=== PATIENT | female | born 1985 | race Caucasian/White ===

== ENCOUNTER 2024-06-21 14:22 | Emergency (ER) | payer BC, SELFPAY ==
[2024-06-21 14:24] VITALS: BP 161/86
--- NOTE | 2024-06-21 14:51 | ED.GENMED ---
History of Present Illness
General
Chief Complaint: Back Pain
Time Seen by Provider: 06/21/24 14:35
History of Present Illness
History of Present Illness:
Patient is a 39-year-old woman who is otherwise healthy presenting to the emergency department lower back pain. Patient states that for the past week she has been having slow progression of lower back pain. She states that last night it was the
worst it has been. She went to her hair appointment today at 12 while she was sitting in the chair she notes that the pain was worsening. She came in here for further evaluation. She states that she has had this before and had extensive testing
done to evaluate for kidney stones cancer and had a bladder scan with urology as well which was all normal. She does state that she was vacuuming prior to the onset of this pain about a week ago. Her last period was 2 weeks. No dysuria urinary
frequency urgency or foul smell in her urine. No vaginal discharge. No nausea vomiting. No abdominal pain. No numbness tingling. No weakness. The pain does not radiate down her legs. no saddle anesthesia urinary incontinence or retention. No
fever. She states that she has not taken any medications that she likes to avoid them
Past History
Past History
ED Past Medical History: None
ED Past Surgical History: None
Social History
Tobacco: Non-smoker
Alcohol: None
Personal:
Living: with family
Employment: Employed
Family History
Family History: Negative Diabetes, Hypertension or CAD
Phy Exam
Physical Exam
Physical Exam:
GENERAL: in no acute distress
HEENT: normocephalic, extraocular movements intact, moist oral mucosa
NECK: normal inspection
Back: No midline spinal tenderness, tenderness over right SI joint, no rash
RESPIRATORY: no respiratory distress, clear to auscultation bilaterally
CARDIOVASCULAR: regular rate and rhythm
ABDOMEN/: soft, non-distended, non-tender to palpation, no rebound or guarding
EXTREMITIES: non-tender, no edema/swelling
NEUROLOGIC: awake and alert, moves all extremities, no sensory deficits, equal strength in upper and lower extremity
SKIN: warm
Course
Orders/Labs/Results
Orders:
Orders
06/21/24 15:00
Lidocaine [Lidocaine 4% Patch] 1 patch TOPICAL DAILY
Apply Lidocaine patch(s) to:: lower back
Test Result ONCE
06/21/24 15:25
Basic Metabolic Panel Urgent
Complete Blood Count/With Diff Urgent
HCG, Serum Qualitative Screen Urgent
06/21/24 15:50
Urinalysis Reflex To Culture Urgent
Date Specimen was Collected: 06/21/24
Time Specimen was Collected: 15:29
Abnormal Lab Results
06/21/24
15:25
RBC 3.93 L 10^6/uL
(4.20-5.40)
Hgb 11.1 L g/dL
(12.0-16.0)
Hct 33.3 L %
(37.0-47.0)
06/21/24 15:25
06/21/24 15:25
Vital Signs
Initial and Last Documented VS:
Initial Vital Signs
Temp Pulse Resp BP Pulse Ox
97.6 F 82 18 161/86 99
06/21/24 14:24 06/21/24 14:24 06/21/24 14:24 06/21/24 14:24 06/21/24 14:24
Last Documented Vital Signs
Temp Pulse Resp BP Pulse Ox
97.6 F 82 18 161/86 99
06/21/24 14:24 06/21/24 14:24 06/21/24 14:24 06/21/24 14:24 06/21/24 14:24
MDM/Problems Addressed
Differential Diagnosis Includes:
39-year-old woman presenting to the emergency department with back pain. Vitals normal does show tenderness to palpation over the right SI joint. Likely mechanical lower back pain/sacroiliitis. Could be kidney stone though less likely. History
exam not consistent with UTI. Will check for . Will obtain urine and basic blood work. I did offer pain medication however patient would like to hold off at this time. Will give lidocaine patch. We did discuss using ice and heating pad
to help with the symptoms.
*Critical Care Note
Total Time (30-74mins, 75-104mins- exclusive of procedures): Not Applicable
Update Note
Update Note:
Blood work unremarkable. Urine negative. Will discharge at this time. Strict return precautions given
ED Attending Note
-
Portions of this chart may have been created with voice recognition software.� Occasional wrong word or��sound alike� substitutions may have occurred due to the inherent limitations of voice recognition software.
Discharge Plan
Departure
Patient Disposition: Home (Routine Discharge)
Date of Disposition: 06/21/24
Time of Disposition: 15:59
Patient with high blood pressure during this ER visit?: No
Discharge Problem:
Back pain
Instructions: Sacroiliac Joint Pain (DC)
Prescriptions:
No Action
hydrocodone-acetaminophen [Vicodin] 1 EACH tablet
1 ea PO Q4HPRN PRN (Reason: pain) Qty: 10 0RF
Referrals:
UNKNOWN - PT DOES,NOT KNOW [Family Provider] -
Activity Restrictions/Additional Instructions:
You were seen in the Emergency Department today for low back pain. While you were here we performed blood work, which was reassuring.
We would like for you to follow up with your primary care physician for further evaluation. If you experience fever, worsening of your symptoms, or develop any other new or concerning symptoms, please return to the Emergency Department immediately.
Please see the attached sheet for additional information.
Interventions
Interventions:
*Risk Screen - Suicide Last Done: 06/21/24 14:24
*General Assessment Last Done: 06/21/24 14:24
*Neglect/Abuse Screening Last Done: 06/21/24 14:24
ED- Fall Risk Assessment Last Done: 06/21/24 15:12
*ED COVID-19 Vaccine History Last Done: 06/21/24 15:12
ED-Musculoskeletal Assessment Last Done: 06/21/24 15:12
Discharge Date and Time
Print Language: FAROESE
[2024-06-21 15:12] VITALS: BMI 25.9
[2024-06-21] MEDS: LIDOCAINE 4% PATCH 1 PATCH TOPICAL (15:16)
[2024-06-21 15:31] LABS: % Basophils 0.4 % (0-2); % Eosinophils 0.6 % (0-6); % Immature Granulocytes 0.1 % (0-0.5); % Lymphocytes 29.5 % (20.5-51.1); % Monocytes 5.2 % (1.7-9.3); % Neutrophils 64.2 % (42.2-75.2); Absolute Eosinophils 0.1 10^3/uL (0-0.7); Absolute Lymphocytes 2.3 10^3/uL (1.2-3.4); Absolute Monocytes 0.4 10^3/uL (0.1-0.6); Hematocrit 33.3 % (37.0-47.0); Hemoglobin 11.1 g/dL (12.0-16.0); Mean Corp Hgb Conc. 33.3 g/dL (33.0-37.0); Mean Corpuscular Hgb 28.2 pg (27.0-31.0); Mean Corpuscular Volume 84.7 fL (81.0-99.0); Mean Platelet Volume 9.9 fL (7.4-10.4); Nucleated Red Blood Cells % 0 %; Platelet Count 330 10^3/uL (130-400); Red Blood Cell Count 3.93 10^6/uL (4.20-5.40); Red Cell Dist. Width 13.3 % (11.5-14.5); White Blood Cell Count 7.7 10^3/uL (4.8-10.8)
[2024-06-21 15:42] LABS: HCG, Serum Qualitative Screen Negative
[2024-06-21 15:47] LABS: Blood Urea Nitrogen 13 mg/dl (7-17); Calcium 10.1 mg/dl (8.4-10.2); Carbon Dioxide 29 mmol/L (22-30); Chloride 104 mmol/L (98-107); Estimated Creatinine Clearance 99 ml/min; Glucose 87 mg/dl (70-99); Sodium 142 mmol/L (135-145); eGFR > 60.00
[2024-06-21 15:56] LABS: Urine Albumin Negative (Neg - Trace); Urine Bilirubin Negative (Negative); Urine Character Clear (Clear); Urine Color Yellow; Urine Glucose Negative (Negative); Urine Ketone Negative (Negative); Urine Leukocyte Negative (Negative); Urine Nitrite Negative (Negative); Urine Occult Blood Negative (Negative); Urine Urobilinogen Negative (Neg - 1+)
[2024-06-21 16:14] VITALS: BP 116/90
== END 2024-06-21 16:15 | disposition home or self-care (01) ==
LOC: EMR 14:22
PROVIDERS: EMERGENCY PHYSICIAN Student in an Organized Health Care Education/Training Program
DX: M54.50 Low back pain, unspecified (principal); Z88.6 Allergy status to analgesic agent
CPT/HCPCS: 99283; 80048; 81003; 84703; 85025

== ENCOUNTER 2024-06-27 08:59 | Emergency (ER) | payer BC, SELFPAY ==
[2024-06-27 09:13] VITALS: BP 143/109
--- NOTE | 2024-06-27 10:01 | ED.GENMED ---
History of Present Illness
General
Chief Complaint: Back Pain
Time Seen by Provider: 06/27/24 09:36
History of Present Illness
History of Present Illness:
39-year-old female presents to the emergency department for evaluation of low back pain radiating down the right leg with paresthesias to the right leg extending to the foot. She was seen in the emergency department earlier in the week for
bilateral low back pain with no radiation. She states she has a GI intolerance to Tylenol and ibuprofen thus is not taking any medications for this. Denies any acute injuries. She works predominantly at a desk/on a computer. No loss of bladder
or bowel function or saddle anesthesias
Past History
Past History
ED Past Medical History: None
ED Past Surgical History: None
Social History
Tobacco: Non-smoker
Alcohol: None
Personal:
Living: with family
Employment: Employed
Family History
Family History: Negative Diabetes, Hypertension or CAD
Review of Systems
Review of Systems
Allergies reviewed?: Yes
All Other Systems: ROS reviewed and negative except as documented in HPI and ROS
Phy Exam
Physical Exam
Physical Exam:
GEN: Well appearing, NAD, WDWN
HEENT: Oral mucosa moist, no scleral icterus
Cardiac: Regular rate
Lung: No respiratory distress, no tachypnea
MSK: No gross deformity or injuries. Lumbar range of motion is normal. Positive straight leg raise test on the right at 15 degrees. Normal right hip and right knee range of motion. 2+ patellar reflexes bilaterally
Skin: Good color, no pallor or jaundice, no rashes
Neuro: AO x3, moves all extremities freely
Psych: Calm, cooperative
Course
Orders/Labs/Results
Orders:
Orders
06/27/24 09:58
Urinalysis Reflex To Culture Urgent
Date Specimen was Collected: 06/27/24
Time Specimen was Collected: 09:59
Vital Signs
Initial and Last Documented VS:
Initial Vital Signs
Temp Pulse Resp BP Pulse Ox
98.4 F 96 18 143/109 100
06/27/24 09:13 06/27/24 09:13 06/27/24 09:13 06/27/24 09:13 06/27/24 09:13
Last Documented Vital Signs
Temp Pulse Resp BP Pulse Ox
98.4 F 96 18 143/109 100
06/27/24 09:13 06/27/24 09:13 06/27/24 09:13 06/27/24 09:13 06/27/24 09:13
MDM/Problems Addressed
MDM/Problems Addressed:
Symptoms are most closely compatible with lumbar radiculopathy. She has no red flag symptoms warranting urgent imaging. Will treat supportively, as she has a GI intolerance to NSAIDs will trial a course of steroids, PT orders written for
outpatient management
*Critical Care Note
Total Time (30-74mins, 75-104mins- exclusive of procedures): Not Applicable
ED Attending Note
-
Portions of this chart may have been created with voice recognition software.� Occasional wrong word or��sound alike� substitutions may have occurred due to the inherent limitations of voice recognition software.
Discharge Plan
Departure
Patient Disposition: Home (Routine Discharge)
Date of Disposition: 06/27/24
Time of Disposition: 10:01
Patient with high blood pressure during this ER visit?: No
Discharge Problem:
Lumbar radiculopathy, acute
Instructions: Radiculopathy (DC)
Prescriptions:
New
methylprednisolone [Medrol (Justus)] 4 mg tablets,dose pack
See Rx Instructions .ROUTE .COMPLEX Qty: 21 0RF
Rx Instructions:
orally per package directions
No Action
hydrocodone-acetaminophen [Vicodin] 1 EACH tablet
1 ea PO Q4HPRN PRN (Reason: pain) Qty: 10 0RF
Activity Restrictions/Additional Instructions:
Call [facility] at [phone], or contact a local PT clinic of your preference
Interventions
Interventions:
*Risk Screen - Suicide Last Done: 06/27/24 09:13
*General Assessment Last Done: 06/27/24 09:13
*Neglect/Abuse Screening Last Done: 06/27/24 09:13
ED- Fall Risk Assessment Last Done: 06/27/24 10:08
*ED COVID-19 Vaccine History Last Done: 06/27/24 10:08
*Nursing Disposition Last Done: 06/27/24 10:08
ED-Musculoskeletal Assessment Last Done: 06/27/24 10:05
Discharge Date and Time
Discharge Date/Time: 06/27/24 10:08
Print Language: CHINESE
== END 2024-06-27 10:08 | disposition home or self-care (01) ==
LOC: EMR 08:59
PROVIDERS: EMERGENCY PHYSICIAN Emergency Medicine
DX: M54.16 Radiculopathy, lumbar region (principal)
CPT/HCPCS: 99283